=== PATIENT | male | born 1990 | race African-American/Black ===

== ENCOUNTER → 2016-08-18 | Outpatient (CLI) | payer OTHER ==
[~2016-08-18] VITALS: Ht 188 cm; Wt 80.3 kg
[2016-08-18 11:19] VITALS: BP 119/72
== END ==
LOC: OPONC 10:15
DX: E86.0 Dehydration (principal)
CPT/HCPCS: 95113

== ENCOUNTER → 2016-10-29 | Outpatient (CLI) | payer OTHER | LOC: CAT 12:05 | DX: I72.9 Aneurysm of unspecified site (principal) ==

== ENCOUNTER → 2017-07-29 | Outpatient (CLI) | payer OTHER | LOC: CAT 06:02 | DX: J32.8 Other chronic sinusitis (principal); J34.2 Deviated nasal septum ==

== ENCOUNTER → 2017-11-30 | Outpatient (CLI) | payer OTHER | LOC: CAT 09:22 | DX: H81.12 Benign paroxysmal vertigo, left ear (principal) ==